=== PATIENT | male | born 1970 | race Caucasian/White ===

== ENCOUNTER 2020-08-26 12:07 | Outpatient (REF) | payer MEDICAID, SELFPAY ==
[2020-08-26 12:37] LABS: MANUAL DIFF FLAG NO
[2020-08-26 12:41] LABS: Basophils Absolute Auto 0.1 X10*3/uL (0.0-0.2); Basophils Percent Auto 0.6 % (0-2); Eosinophils Absolute Auto 0.3 X10*3/uL (0.0-0.4); Hematocrit 48.2 % (42-52); Hemoglobin 15.9 g/dl (14.0-18.0); Imm Gran Abs Auto 0.17 X10*3/uL (0.00-0.03); Imm Gran Pct Auto 1.4 % (0.0-0.4); Lymphocytes Absolute Auto 4.5 X10*3/uL (1.2-4.9); Lymphocytes Percent Auto 36.1 % (20-40); Mean Corpuscular Hemoglobin 30.8 pg (27.0-33.0); Mean Corpuscular Volume 93.2 fL (80-98); Mean Platelet Volume 9.3 fL (9.4-12.4); Monocytes Absolute Auto 0.9 X10*3/uL (0.1-1.2); Monocytes Percent Auto 6.9 % (2-11); Neutrophils Absolute Auto 6.6 X10*3/uL (2.0-8.3); Platelet Count 281 X10*3/uL (160-400); Red Blood Count 5.17 X10*6/uL (4.60-5.80); Red Cell Distribution Width 13.4 % (11.0-16.0); White Blood Count 12.4 X10*3/uL (4.8-10.8)
[2020-08-26 13:12] LABS: Alanine Aminotransferase 57 U/L (0-40); Albumin Level 4.9 g/dL (3.5-5.0); Alkaline Phosphatase 109 U/L (39-117); Anion Gap 13 (12-20); Aspartate Amino Transferase 41 U/L (5-37); Bilirubin Total 0.8 mg/dL (0.0-1.0); Blood Urea Nitrogen 17 mg/dL (9-16); Calcium 10.2 mg/dL (8.4-10.2); Carbon Dioxide 29 mmol/L (22-29); Chloride 101 mmol/L (96-108); Cholesterol 122 mg/dL; Estimated Glomerular Filt Rate > 60; Glucose Random 210 mg/dL (60-115); HDL Cholesterol 34 mg/dL; LDL Cholesterol Calculated 73 mg/dl; Potassium 4.3 mmol/L (3.3-5.1); Sodium 139 mmol/L (135-145); Total Protein 7.7 g/dL (6.5-8.0); Triglycerides 76 mg/dL
[2020-08-26 13:32] LABS: Prostate Specific Antigen 1.28 ng/mL (<0.05-4.0); Vitamin D 25-OH Total 47.7 ng/mL (>30)
[2020-08-26 13:35] LABS: Creatinine Urine 302.42 mg/dL; Microalbum/Creatinine Ratio Ur 12.2 ug/mg cr
[2020-08-26 14:03] LABS: T4 Thyroxine 7.5 ug/dL (4.5-12.0)
[2020-08-26 14:56] LABS: Vitamin B12 480 pg/mL (200-900)
[2020-08-27 09:06] LABS: Triiodothyronine T3 Free 2.4 pg/mL (2.3-4.2)
[2020-08-28 20:47] LABS: TS Negative Control Passed; TS Panel A 0; TS Panel B 0; TS Positive Control Passed; TSpotTB Negative (SeeBelow)
== END 2020-08-26 12:08 | disposition home or self-care (01) ==
LOC: HO.LAB 12:07
PROVIDERS: PCP Pediatrics; Visit Provider Pediatrics
DX: Z11.4 Encounter for screening for human immunodeficiency virus [HIV] (principal); E03.9 Hypothyroidism, unspecified; E11.9 Type 2 diabetes mellitus without complications; E78.00 Pure hypercholesterolemia, unspecified; J44.9 Chronic obstructive pulmonary disease, unspecified
CPT/HCPCS: 36415; 80053; 80061; 82043; 82306; 82550; 82607; 84153; 84436; 84443; 84481; 85025; 86481

== ENCOUNTER 2021-05-04 13:56 | Outpatient (REF) | payer MEDICAID, SELFPAY ==
[2021-05-04 14:22] LABS: MANUAL DIFF FLAG NO
[2021-05-04 14:59] LABS: Basophils Absolute Auto 0.1 X10*3/uL (0.0-0.2); Basophils Percent Auto 0.6 % (0-2); Eosinophils Absolute Auto 0.2 X10*3/uL (0.0-0.4); Eosinophils Percent Auto 2.4 % (0-4); Hematocrit 48.5 % (42.0-52.0); Hemoglobin 15.8 g/dl (14.0-18.0); Imm Gran Abs Auto 0.07 X10*3/uL (0.00-0.03); Imm Gran Pct Auto 0.7 % (0.0-0.4); Lymphocytes Absolute Auto 3.7 X10*3/uL (1.2-4.9); Lymphocytes Percent Auto 37.2 % (20-40); Mean Corpuscular HGB Conc 32.6 g/dl (31.0-36.0); Mean Corpuscular Hemoglobin 30.2 pg (27.0-33.0); Mean Corpuscular Volume 92.7 fL (80.0-98.0); Monocytes Percent Auto 9.9 % (2-11); Neutrophils Percent Auto 49.2 % (45-73); Platelet Count 282 X10*3/uL (160-400); Red Blood Count 5.23 X10*6/uL (4.60-5.80); Red Cell Distribution Width 13.7 % (11.0-16.0); White Blood Count 10.1 X10*3/uL (4.8-10.8)
[2021-05-04 15:24] LABS: Alanine Aminotransferase 38 U/L (0-40); Albumin Level 4.7 g/dL (3.5-5.0); Alkaline Phosphatase 94 U/L (39-117); Anion Gap 12 (12-20); Aspartate Amino Transferase 22 U/L (5-37); Bilirubin Total 0.4 mg/dL (0.0-1.0); Blood Urea Nitrogen 8 mg/dL (9-16); Carbon Dioxide 31 mmol/L (22-29); Chloride 102 mmol/L (96-108); Cholesterol 148 mg/dL; Estimated Glomerular Filt Rate > 60; Glucose Random 68 mg/dL (60-115); HDL Cholesterol 35 mg/dL; LDL Cholesterol Calculated 90 mg/dl; Magnesium 2.1 mg/dL (1.6-2.6); Potassium 4.5 mmol/L (3.3-5.1); Sodium 140 mmol/L (135-145); Total Protein 7.4 g/dL (6.5-8.0); Triglycerides 119 mg/dL
[2021-05-04 15:26] LABS: Estimated Average Glucose 117 mg/dL; Hemoglobin A1c % 5.7 %
[2021-05-04 15:40] LABS: Creatinine Urine 255.16 mg/dL
[2021-05-04 15:58] LABS: Thyroid Stimulating Hormone 0.09 uIU/mL (0.32-4.0); Vitamin D 25-OH Total 63.4 ng/mL (>30)
[2021-05-04 16:17] LABS: T4 Thyroxine 11.9 ug/dL (4.5-12.0)
[2021-05-04 16:55] LABS: Vitamin B12 522 pg/mL (200-900)
[2021-05-06 06:36] LABS: Triiodothyronine T3 Total 112 ng/dL (76-181)
== END 2021-05-04 13:57 | disposition home or self-care (01) ==
LOC: HO.LAB 13:56
PROVIDERS: PCP Pediatrics; Visit Provider Pediatrics
DX: E03.9 Hypothyroidism, unspecified (principal); E11.9 Type 2 diabetes mellitus without complications; E78.00 Pure hypercholesterolemia, unspecified; I10 Essential (primary) hypertension
CPT/HCPCS: 36415; 80053; 80061; 82043; 82306; 82550; 82607; 83036; 83735; 84436; 84443; 84480; 85025

== ENCOUNTER 2023-03-09 16:06 | Outpatient (REF) | payer MEDICAID, SELFPAY ==
[2023-03-09 17:34] LABS: MANUAL DIFF FLAG NO
[2023-03-09 17:38] LABS: Basophils Absolute Auto 0.1 X10*3/uL (0.0-0.2); Basophils Percent Auto 0.9 % (0-2); Eosinophils Absolute Auto 0.7 X10*3/uL (0.0-0.4); Eosinophils Percent Auto 4.6 % (0-4); Hemoglobin 16.6 g/dl (14.0-18.0); Imm Gran Abs Auto 0.21 X10*3/uL (0.00-0.03); Imm Gran Pct Auto 1.4 % (0.0-0.4); Lymphocytes Absolute Auto 4.7 X10*3/uL (1.2-4.9); Lymphocytes Percent Auto 31.2 % (20-40); Mean Corpuscular HGB Conc 33.9 g/dl (31.0-36.0); Mean Corpuscular Hemoglobin 31.1 pg (27.0-33.0); Mean Corpuscular Volume 91.9 fL (80.0-98.0); Monocytes Absolute Auto 0.8 X10*3/uL (0.1-1.2); Monocytes Percent Auto 5.5 % (2-11); Neutrophils Absolute Auto 8.5 x10*3/uL (2.0-8.3); Neutrophils Percent Auto 56.4 % (45-73); Platelet Count 271 X10*3/uL (160-400); Red Blood Count 5.33 X10*6/uL (4.60-5.80); Red Cell Distribution Width 13.6 % (11.0-16.0); White Blood Count 15.1 X10*3/uL (4.8-10.8)
[2023-03-09 18:01] LABS: Anion Gap 12 (12-20); Blood Urea Nitrogen 12 mg/dL (9-16); Calcium 9.3 mg/dL (8.4-10.2); Carbon Dioxide 25 mmol/L (22-29); Chloride 104 mmol/L (96-108); Cholesterol 201 mg/dL (<200); Estimated Glomerular Filt Rate > 60; Glucose Fasting 98 mg/dL (60-99); HDL Cholesterol 42 mg/dL (>40); LDL Cholesterol Calculated 142 mg/dL (<100); Potassium 3.9 mmol/L (3.3-5.1); Sodium 137 mmol/L (135-145); Triglycerides 89 mg/dL (<150)
[2023-03-09 20:32] LABS: Free T4 (Free Thyroxine) 1.19 ng/dL (0.71-1.85)
[2023-03-12 18:44] LABS: TS Negative Control Passed; TS Panel A 0; TS Panel B 0; TS Positive Control Passed; TSpotTB Negative (Negative)
== END 2023-03-09 16:07 | disposition home or self-care (01) ==
LOC: HO.CHCLDS 16:06
PROVIDERS: Visit Provider Pediatrics
DX: Z12.5 Encounter for screening for malignant neoplasm of prostate (principal); Z11.1 Encounter for screening for respiratory tuberculosis; E11.9 Type 2 diabetes mellitus without complications; I10 Essential (primary) hypertension; E03.9 Hypothyroidism, unspecified; F17.200 Nicotine dependence, unspecified, uncomplicated
CPT/HCPCS: 36415; 80048; 80061; 84153; 84439; 84443; 85025; 86481

== ENCOUNTER 2023-08-08 11:43 | Outpatient (REF) | payer MEDICAID, SELFPAY ==
[2023-08-08 15:12] LABS: TSH reflex Free T4 7.26 uIU/mL (0.32-4.0)
[2023-08-08 17:08] LABS: Free T4 (Free Thyroxine) 0.98 ng/dL (0.71-1.85)
[2023-08-09 08:53] LABS: Lyme Abs Screen <0.90 index
== END 2023-08-08 11:44 | disposition home or self-care (01) ==
LOC: HO.CHCLDS 11:43
PROVIDERS: Visit Provider Pediatrics
DX: S30.860A Insect bite (nonvenomous) of lower back and pelvis, initial encounter (principal); W57.XXXA Bitten or stung by nonvenomous insect and other nonvenomous arthropods, initial encounter; E03.9 Hypothyroidism, unspecified; E11.9 Type 2 diabetes mellitus without complications; Y93.9 Activity, unspecified; Y92.9 Unspecified place or not applicable; Y99.9 Unspecified external cause status
CPT/HCPCS: 36415; 84439; 84443; 86617; 86618

== ENCOUNTER 2024-05-15 12:53 | Outpatient (REF) | payer MEDICAID, SELFPAY ==
[2024-05-15 14:55] LABS: MANUAL DIFF FLAG NO
--- OUTSIDE RECORDS SUMMARY | 2024-05-15 14:55 | XMS_ITS | Encounter Summary ---
Author Organization [employer] Address [address] [facility] 7t [place] [address] Care Team Providers Care Monkey Keeper Name Role Phone Mariann Landaverde MD Primary Care Provider [phone] Reason for Visit * Reason Onset Date Comments Additional Information 03/14/2023 Encounter Details Date Type Department Care Team ([facility] st Contact Info) Description 03/14/2023 Telephone [facility] MEDICINE [address] [place], [place] [phone] Mariann Landaverde MD [address] [place], [place] [phone] Additional Information Social History Tobacco Use Types Packs/Day Years Used Date Smoking Tobacco: Every Day Cigarettes Passive Smoke Exposure: Current Smokeless Tobacco: Never Depression Answer Date Recorded Patient Health Questionnaire-9 Score 0 06/07/2022 Housing Stability Answer Date Recorded What is your housing situation today? I have ricarda cota 12/07/[address] you li ve. Do you have problems with any of the following? I am not sure 12/07/2022 Food Insecurity Answer Date Recorded Within the past 12 months, y ou worried that your food would run out before you got money to buy more: Never True 12/07/2022 Within the past 12 months,th e food you bought just didn't last and you didn't have enough money to get more: Often true 02/2022 Transportation Answer Date Recorded In the past 12 months, has l ack of transportation kept you from medical appts, meetings, work or from getting things needed for daily living? No 12/07/2022 Utilities Answer Date Recorded In the past 12 months, has t he electric, gas, oil or water company threatened to shut off services in your home? I am not sure 12/07/2022 Depression Answer Date Recorded Patient Health Questionnaire-2 Score 0 06/07/2022 Sex and Gender Information Value Date Recorded Sex Assigned at Male 12/06/2021 10:19 AM EDT Legal Sex Male 10:19 AM EDT Gender Identity Male 12/06/2021 10:19 AM EDT Sexual Orientation Straight 08/11/2023 12 :09 PM EDT documented as of this encounter Miscellaneous Notes * Telephone Encounter - Marshall Encarnacion - 03/14/2023 9:50 AM EST Tc from [facility] at [facility] Radiology calling to inform the PCP that the part for how many packs per year the patient smokes cigarettes needs to be filled out due to insurance documented in this encounter Plan of Treatment Upcoming Encounters Date Type Department Care Team (Late st Contact Info) Description 07/24/2024 11:30 AM EDT Office Visit [facility] CHC MED & PEDS [address] [place] [address] Mariann Landaverde MD [address] [place] [address] documented as of this encounter Visit Diagnoses Not on filedocumented in this encounter Additional Health Concerns Assessment Noted Time PHQ-9 Depression Total Score: 0 06/08/19 23 12:00 PM EDT documented as of this encounter Care Teams Monkey Keeper Relationship Specialty Start Date End Date Mariann Landaverde MD [address] [place] [address] PCP - General Family Medicine 02/06/18 documented as of this encounter
--- OUTSIDE RECORDS SUMMARY | 2024-05-15 14:55 | XMS_ITS | Encounter Summary ---
Author Organization [employer] Address [address] [facility] 7t [place] [address] Care Team Providers Care Negotiator Sales Name Role Phone Mariann Landaverde MD Primary Care Provider [phone] Encounter Details Date Type Department Care Team (Late st Contact Info) Description 03/14/2023 Orders Only [facility] CHC MED & PEDS [address] [place], [place] [phone] Mariann Landaverde MD [address] [place], [place] [phone] Social History Tobacco Use Types Packs/Day Years [...] PM EDT documented as of this encounter Plan of Treatment Upcoming Encounters Date Type Department Care Team (Late st Contact Info) Description 07/24/2024 11:30 AM EDT Office Visit [facility] MED & PEDS [address] [place], [place] [phone] Mariann Landaverde MD [address] [place], [place] [phone] documented as of this encounter Procedures Procedure Name Priority Date/Time Associated Diagnosis Comments T4, FREE Routine 08/08/2023 11:45 AM EDT documented in this encounter Results * T4, Free (08/08/2023 11:45 AM EDT) Free T4 (Free Thyroxine) 0.98 0.71 - 1.85 ng/dL [facility] 08/08/2023 11:4 5 AM EDT 08/08/2023 2:20 PM EDT us Mariann Landaverde MD LAB BLOOD ORDERABLES Final Re sult [facility] [address] [place] [address] [phone] documented in this encounter Visit Diagnoses Not on filedocumented in this encounter Additional Health Concerns Assessment Noted Time PHQ-9 Depression Total Score: 0 06/08/19 23 12:00 PM EDT documented as of this encounter Care Teams Negotiator Sales Relationship Specialty Start Date End Date Mariann Landaverde MD [address] [place] [address] PCP - General Family Medicine 02/06/18 documented as of this encounter
--- OUTSIDE RECORDS SUMMARY | 2024-05-15 14:55 | XMS_ITS | Encounter Summary ---
Author Organization [employer] Address [address] [facility] 7t [place] [address] Care Team Providers Care Cloud Solutions Architect Name Role Phone Mariann Landaverde MD Primary Care Provider [phone] Reason for Referral * Imaging (Routine) - Closed Specialty Diagnoses / Procedures Referred By Contmaty t Referred To Contact Diagnoses Smoker Procedures CT Chest w/ Contrast Kourtney Cherry MD [address] [place] [address] Phone: tel: fax: [address] Phone: tel: fax: Referral ID Status Reason Start Date Expiration Date Visits Re quested Visits Authorized [id number] Closed 06/24/2022 06/24/2023 1 1 Encounter Details Date Type Department Care Team ([facility] st Contact Info) Description 06/24/2022 Orders Only [facility] MEDICINE [address] [place], [place] [phone] Kourtney Cherry MD [address] [place], [place] [phone] Smoker (Primary Dx) Social History Tobacco Use Types Packs/Day Years Used Date Smoking Tobacco: Every Day Cigarettes Passive Smoke Exposure: Current Smokeless Tobacco: Never Depression Answer Date Recorded Patient Health Questionnaire-9 Score 0 06/07/2022 Depression Answer Date Recorded Patient Health Questionnaire-2 Score 0 06/07/2022 Sex and Gender Information Value Date Recorded Sex Assigned at Male 12/06/2021 10:19 AM EDT Legal Sex Male 10:19 AM EDT Gender Identity Male 12/06/2021 10:19 AM EDT Sexual Orientation Straight 08/11/2023 12 :09 PM EDT COVID-19 Exposure Response Date Recorded In the last 10 days, have yo u been in contact with someone who was confirmed or suspected to have Coronavirus/COVID-19? No / Unsure 06/07/2022 11:27 AM EDT documented as of this encounter Plan of Treatment Upcoming Encounters Date Type Department Care Team (Late st Contact Info) Description 07/24/2024 11:30 AM EDT Office Visit [facility] MED & PEDS [address] [place] [address] Mariann Landaverde MD [address] [place] [address] Scheduled Orders Name Type Priority Associated Diagnoses Orde r Schedule CT Chest w/ Contrast Imaging Routine Smoker Expected: 06/24/2022, Expires: 06/25/2023 documented as of this encounter Procedures Procedure Name Priority Date/Time Associated Diagnosis Comments T4, FREE Routine 03/09/2023 4:07 PM EST Smoker documented in this encounter Results * T4, Free (03/09/2023 4:07 PM EST) Free T4 (Free Thyroxine) 1.19 0.71 - 1.85 ng/dL [facility] 03/09/2023 4:07 PM EST 03/09/2023 5:31 PM EST us Mariann Landaverde MD LAB BLOOD ORDERABLES Final Re sult [facility] [address] [place] [address] [phone] documented in this encounter Visit Diagnoses Diagnosis Smoker- Primary Tobacco use disorder documented in this encounter Additional Health Concerns Assessment Noted Time PHQ-9 Depression Total Score: 0 06/08/19 23 12:00 PM EDT documented as of this encounter Care Teams Cloud Solutions Architect Relationship Specialty Start Date End Date Mariann Landaverde MD [address] [place] [phone] PCP - General Family Medicine 02/06/18 documented as of this encounter
--- OUTSIDE RECORDS SUMMARY | 2024-05-15 14:56 | XMS_ITS | Clinical Summary ---
Author Organization [employer] Address [address] [facility] 7t [place] [address] Care Team Providers Care Communications Program Manager Name Role Phone Mariann Landaverde MD Primary Care Provider [phone] Allergies Active Allergy Reactions Criticality Noted Date Comments Oxycodone 04/21/2014 Other reaction(s): Nausea/Vomiting Medications albuterol (ProAir HFA) 108 (90 Base) MCG/ACT inhaler inhale 2 puff by inhalation route every 4 - 6 hours as needed as needed for wheezing 019 Active atorvastatin (Lipitor) 40 MG tablet take 1 tablet by oral route every bedtime 022 Active dulaglutide (Trulicity) 0.75 MG/0.5ML solution pen-injector inject (0.75MG) by subcutaneous route every week 022 Active fluticasone (Flovent HFA) 220 MCG/ACT inhaler inhale 1 puff (220MCG) by inhalation route 2 times every day 021 Active glucose blood (FREESTYLE LITE) test strip check bs by skin route 2 times every day 019 Active ibuprofen 600 MG tablet take 1 tablet by oral route 3 times every day with food 018 Active sildenafil (Viagra) 100 MG tablet take 1 tablet by oral route every day as needed approximately 1 hour before sexual activity as needed 021 Active testosterone (Testim) 50 MG/5GM (1%) gel apply (50MG) by topical route every day (1 tube = 50 mg) 022 Active Varenicline Tartrate, Starter, (Chantix Starting Month ) 0.5 MG X 11 & 1 MG X 42 tablet therapy pack Take 0.5 mg by mouth 2 times daily. 53 each 023 Active nicotine (Nicoderm, Step 1) 21 MG/24HR patch apply 1 patch by transdermal route every day and remove at bedtime 30 patch 1 024 Active hydroCHLOROthia zide (HYDRODiuril) 25 MG tabletIndicatio ns:Benign essential hypertension TAKE ONE TABLET DAILY 30 tablet 11 024 Active Viagra 100 MG tabletIndicatio ns:Erectile dysfunction due to diseases classified elsewhere TAKE 1 TABLET 1 HOUR BEFORE SEXUAL RELATIONS ONCE DAILY NEEDED. 4 tablet 3 024 Active levothyroxine (Synthroid) 125 MCG tablet Take 1 tablet (125 mcg) by mouth before breakfast. 30 tablet 11 024 2024 Active enalapril (Vasotec) 20 MG tablet TAKE ONE TABLET EVERY DAY 90 tablet 3 024 Active Trulicity 0.75 MG/0.5ML solution auto-injectorIn dications:Type 2 diabetes mellitus without complication, without long-term current use of insulin ([facility]) INJECT ONE PEN (=0.75MG) SUBCUTANEOUSLY ONCE A WEEK DIRECTED 2 mL 11 025 Active dulaglutide (Trulicity) 0.75 MG/0.5ML solution pen-injectorInd ications:Type 2 diabetes mellitus without complication, without long-term current use of insulin (CMS/HCC) INJECT ONE PEN (=0.75MG) SUBCUTANEOUSLY ONCE A WEEK DIRECTED 2 mL 11 024 2024 Discontinued Active Problems Problem Noted Date Diagnosed Date Cigarette smoker 08/08/2023 Diabetes mellitus without complication 7 Benign essential hypertension 01/28/2015 Acquired hypothyroidism 06/14/2011 Hypercholesterolemia 06/14/2011 Tobacco dependence in remission 06/14/2011 03/13/2023 Hypertension 06/14/2011 03/13/2023 Obesity 06/14/2011 03/13/2023 Encounters Date Type Department Care Team Description 05/04/2024 Refill [facility] MEDICINE [address] [place] [address] Mariann Landaverde MD Type 2 diabetes mellitus without complication, without long-term current use of insulin (CMS/HCC) 04/19/2024 Population Health Risk Score [facility] Department [address] [place] [phone] Provider, Population Health Generic 04/11/2024 11:30 AM EST Office Visit [facility] MED & PEDS [address] [place] [address] Mariann Landaverde MD Benign essential hypertension (Primary Dx); Diabetes mellitus without complication (CMS/HCC); Acquired hypothyroidism; Hypercholesterolemi a; Dietary counseling; Exercise counseling; Cigarette smoker 04/11/2024 Travel 03/06/2024 Telephone [facility] CHC MED & PEDS [address] [place] [address] Mariann Landaverde MD chronic conditions tracking from Last 3 Months Immunizations Name Administration Dates Next Due Tdap 09/09/2009 Family History Medical History Relation Name Comments Blindness Mother's Brother Diabetes Mother's Brother Relation Name Status Comments Mother's Brother Social History Tobacco Use Types Packs/Day Years Used Date Smoking Tobacco: Every Day Cigarettes Passive Smoke Exposure: Current Smokeless Tobacco: Never Tobacco Cessation:Ready to Q uit: Not Asked; Counseling Given: Not Answered Depression Answer Date Recorded Patient Health Questionnaire-9 Score 0 06/07/2022 Housing Stability Answer Date Recorded What is your housing situation today? I have ricarda cota 08/08/[address] you li ve. Do you have problems with any of the following? None of the above 08/08/2023 Food Insecurity Answer Date Recorded Within the past 12 months, y ou worried that your food would run out before you got money to buy more: Never True 08/08/2023 Within the past 12 months,th e food you bought just didn't last and you didn't have enough money to get more: Never True 03/2023 Transportation Answer Date Recorded In the past 12 months, has l ack of transportation kept you from medical appts, meetings, work or from getting things needed for daily living? No 08/08/2023 Utilities Answer Date Recorded In the past 12 months, has t he electric, gas, oil or water company threatened to shut off services in your home? No 08/08/2023 Depression Answer Date Recorded Patient Health Questionnaire-2 Score 0 06/07/2022 Internet Access Answer Date Recorded Internet Access Q1 Yes 10/09/2023 Internet Access Q2 Not on file 10/09/2023 Sex and Gender Information Value Date Recorded Sex Assigned at Male 12/06/2021 10:19 AM EDT Legal Sex Male 10:19 AM EDT Gender Identity Male 12/06/2021 10:19 AM EDT Sexual Orientation Straight 08/11/2023 12 :09 PM EDT Last Filed Vital Signs Vital Sign Reading Time Taken Comments Blood Pressure 123/83 04/11/2024 11:48 AM EST Pulse 90 04/11/2024 11:48 AM EST Temperature 36.6 ??C (97.8 ??F) 04/11/2024 11:[address] Respiratory Rate 20 04/11/2024 11:48 AM EST Oxygen Saturation 98% 04/11/2024 11:48 AM EST Inhaled Oxygen Concentration - - Weight 88.9 kg (196 lb) 04/11/2024 11:48 AM EST Height 174 cm (5' 8.5 ) 04/11/2024 11:48 AM EST Body Mass Index 29.37 04/11/2024 11:48 AM EST Plan of Treatment Upcoming Encounters Date Type Department Care Team (Late st Contact Info) Description 07/24/2024 11:30 AM EDT Office Visit [facility] CHC MED & PEDS [address] [place] [address] Mariann Landaverde MD [address] [place] [address] Health Maintenance Due Date Last Done Comments CT Colonography 1968 Colonoscopy 1968 Colorectal Cancer Screening 1968 FIT DNA/Cologuard 1968 FIT 1968 FOBT 1968 HIV Screening 1968 Sigmoidoscopy 1968 Diabetes: Foot Exam 01/19/1978 Hepatitis C Screening 01/19/1986 Hepatitis B Vaccines (1 of 3 - 19+ 3-dose series) 01/19/1987 Pneumococcal Vaccine: 50+ Years (1 of 2 - PCV) 01/19/1987 Zoster Vaccines (1 of 2) 01/19/2018 DTaP/Tdap/Td Vaccines (2 - Td or Tdap) 09/10/2019 09/09/2009 Diabetes: Urine Protein Screening 05/04/2022 05/04/2021, 08/26/2020, 12/05/2019 Depression Screening 06/08/2023 06/07/2022, 06/08/19 23 COVID-19 Vaccine ( season) 2023 04/18/2020, 03/26/2020 Influenza Vaccine (#1) 2023 Lipid Panel 03/09/2024 03/09/2023, 02/07, 10/27/2021, Additional history exists Alcohol/Substance Use Screening 08/07/2024 08/08/2023 SDOH Screening 08/07/2024 08/08/2023 Eye Exam 09/06/2024 09/06/2022, 0802/2022, 09/06/2022, Additional history exists Diabetes: Hemoglobin A1C 10/12/2024 025, 08/08/2023, 03/09/2023, Additional history exists Tobacco Screening 04/11/2025 04/11/2024, 06/07/2022 RSV Patients and Patients Aged 60 years or older (1 - 1-dose 75+ series) 01/19/2043 HIB Vaccines Aged Out No longer eligi ble based on patient's age to complete this topic HPV Vaccines Aged Out No longer eligi ble based on patient's age to complete this topic Hepatitis A Vaccines Aged Out No long er eligible based on patient's age to complete this topic IPV Vaccines Aged Out No longer eligi ble based on patient's age to complete this topic Meningococcal Vaccine Aged Out No taz karen eligible based on patient's age to complete this topic RSV under 20 months Aged Out No longe r eligible based on patient's age to complete this topic Rotavirus Vaccines Aged Out No longer eligible based on patient's age to complete this topic Procedures Procedure Name Priority Date/Time Associated Diagnosis Comments POCT GLYCATED HEMOGLOBIN, TOTAL Routine 04/11/2024 11:53 AM EST Diabetes mellitus without complication (CMS/HCC) POCT GLUCOSE Routine 04/11/2024 11:52 AM EST Diabetes mellitus without complication (CMS/HCC) LIPID PANEL, STANDARD Routine 03/09/2023 4:07 PM EST Diabetes mellitus without complication (CMS/HCC) Benign essential hypertension Acquired hypothyroidism Smoker [employer] HISTORICAL MICROALBUMIN/CREATI NINE RATIO, RANDOM URINE Routine 05/04/2021 2:17 PM EDT from Last 3 Months or Most Recently Relevant to Health Maintenance Results * POCT HGB A1C (04/11/2024 11:53 AM EST) Hemoglobin A1C 6.0 4.0 - 6.0 % QC Media Lot # [id number] Lot# Expiration Date 1,026 Blood 04/11/2024 11:5 3 AM EST Mariann Landaverde MD POINT OF CARE TEST ENTER/EDIT ORDERABLES Final Result * POCT Glucose (04/11/2024 11:52 AM EST) Pathologist [facility] Glucose Blood, POC 153 60 - 200 mg/dL QC Media Lot # [id number] Lot# Expiration Date Blood Capillary blood specimen / Unknown 04/11/2024 11:52 AM EST Mariann Landaverde MD POINT OF CARE TEST ENTER/EDIT ORDERABLES Final Result * (ABNORMAL) Lipid Panel, Standard (03/09/2023 4:07 PM EST) Triglycerides 89 <150 mg/dL [facility] Comment:Desirable Triglyceri de: less than 150 mg/dLBorderline High Triglyceride 150-199 mg/dLHigh Triglyceride: 200-499 mg/dLVery High Triglyceride: greater than or equal to 5OO mg/dL Cholesterol 201(H) <200 mg/dL [facility] Comment:Desirable Cholestero l: less than 200 mg/dLBorderline High Cholesterol: 200-239 mg/dLHigh Cholesterol: greater than 239 mg/dL LDL Cholesterol Calculated 142(H) <100 mg/dL [facility] Comment:Desirable LDL: less than 100 mg/dLNear Optimal/Above Optimal LDL: 110- 129 mg/dLBorderline High LDL: 130-159 mg/dLHigh LDL: 160-189 mg/dLVery High LDL: greater than or equal to 190 mg/dL HDL Cholesterol 42 >40 mg/dL [facility] Comment:Desirable HDL: great er than 40 mg/dL Note: This HDL assay may give artificially low results in patients with liver disease. Blood Venous blood specimen / Unknown 03/09/2023 4:07 PM EST 03/09/2023 5:31 PM EST us Mariann Landaverde MD LAB BLOOD ORDERABLES Final Re sult Performing Organization Address [facility] Co de Phone Number [facility] [address] [place] [address] [phone] * MICROALBUMIN/CREATININE RATIO, RANDOM URINE (05/04/2021 2:17 PM EDT) Creatinine Urine 255.16 mg/dL [facility] Microalbum/Creati nine Ratio Ur 7.0 ug/mg cr [facility] Comment: ?Albumin/Creatinine Ratio Reference Ranges: ? Normal: < 30 ug/mg creatinine ? Microalbuminuria: ??30 - 300 ug/mg creatinine Clinical Albuminuria: ??> 300 ug/mg creatinine Microalbumin Urine 18.0 mg/L [facility] 05/04/2021 2:17 PM EDT us Mariann Landaverde MD HISTORICAL/NON ORDERABLE LABS Final Result [facility] [address] from Last 3 Months or Most Recently Relevant to Health Maintenance Insurance [place] [employer] Care Teams Communications Program Manager Relationship Specialty Start Date End Date Mariann Landaverde MD [address] [place] [phone] PCP - General Family Medicine 02/06/18
[2024-05-15 14:57] LABS: Hematocrit 49.3 % (42.0-52.0); Hemoglobin 16.4 g/dl (14.0-18.0); Mean Corpuscular HGB Conc 33.3 g/dl (31.0-36.0); Mean Corpuscular Hemoglobin 30.7 pg (27.0-33.0); Mean Corpuscular Volume 92.1 fL (80.0-98.0); Mean Platelet Volume 9.5 fL (9.4-12.4); Neutrophils Percent Auto 49.4 % (45-73); Platelet Count 277 X10*3/uL (160-400); Red Blood Count 5.35 X10*6/uL (4.60-5.80); Red Cell Distribution Width 13.4 % (11.0-16.0); White Blood Count 10.8 X10*3/uL (4.8-10.8)
[2024-05-15 14:58] LABS: Basophils Absolute Auto 0.1 X10*3/uL (0.0-0.2); Basophils Percent Auto 0.8 % (0-2); Eosinophils Absolute Auto 0.3 X10*3/uL (0.0-0.4); Imm Gran Abs Auto 0.12 X10*3/uL (0.00-0.03); Imm Gran Pct Auto 1.1 % (0.0-0.4); Lymphocytes Absolute Auto 4.1 X10*3/uL (1.2-4.9); Lymphocytes Percent Auto 37.4 % (20-40); Monocytes Absolute Auto 0.9 X10*3/uL (0.1-1.2); Monocytes Percent Auto 8.3 % (2-11); Neutrophils Absolute Auto 5.3 x10*3/uL (2.0-8.3)
[2024-05-15 15:21] LABS: Alanine Aminotransferase 28 U/L (0-40); Albumin Level 4.6 g/dL (3.5-5.0); Alkaline Phosphatase 82 U/L (39-117); Aspartate Amino Transferase 27 U/L (5-37); Bilirubin Direct 0.1 mg/dL (0.0-0.5); Bilirubin Total 0.3 mg/dL (0.0-1.0); Cholesterol 198 mg/dL (<200); HDL Cholesterol 40 mg/dL (>40); LDL Cholesterol Calculated 140 mg/dL (<100); Total Protein 7.3 g/dL (6.5-8.0); Triglycerides 93 mg/dL (<150)
[2024-05-15 15:36] LABS: TSH reflex Free T4 3.35 uIU/mL (0.32-4.0)
[2024-05-15 15:43] LABS: Vitamin B12 456 pg/mL (200-900)
[2024-05-15 15:45] LABS: Creatinine Urine 223.91 mg/dL; Microalbum/Creatinine Ratio Ur 11.1 ug/mg cr (<30)
== END 2024-05-15 12:54 | disposition home or self-care (01) ==
LOC: HO.CHCLDS 12:53
PROVIDERS: Visit Provider Pediatrics
DX: I10 Essential (primary) hypertension (principal); E11.9 Type 2 diabetes mellitus without complications; E03.9 Hypothyroidism, unspecified; E78.00 Pure hypercholesterolemia, unspecified
CPT/HCPCS: 36415; 80061; 80076; 82043; 82570; 82607; 82746; 84443; 85025

== ENCOUNTER 2024-06-18 22:50 | Emergency (ER) | payer MEDICAID, SELFPAY ==
[2024-06-18 22:55] VITALS: BP 00/00; PULSE 96; RESP 20; TEMP 36.6; O2SAT 95; BMI 26.5
--- OUTSIDE RECORDS SUMMARY | 2024-06-18 23:58 | XMS_ITS | Encounter Summary ---
Author Organization [employer] Address [address] [facility] 7t [place] [address] Care Team Providers Care Machine Fastener Name Role Phone Mariann Landaverde MD Primary Care Provider [phone] Encounter Details Date Type Department Care Team (Late st Contact Info) Description 03/14/2023 Orders Only [facility] MED & PEDS [address] [place], [place] [phone] Mariann Landaverde MD [address] [place], [place] [phone] Social History Tobacco Use Types Packs/Day Years [...] Description 07/24/2024 11:30 AM EDT Office Visit [facility] MED & PEDS [address] [place], [place] [phone] Mariann Landaverde MD [address] [place], [place] [phone] documented as of this encounter Procedures Procedure Name Priority Date/Time Associated Diagnosis Comments T4, FREE Routine 08/08/2023 11:45 AM EDT documented in this encounter Results * T4, Free (08/08/2023 11:45 AM EDT) Free T4 (Free Thyroxine) 0.98 0.71 - 1.85 ng/dL [facility] 08/08/2023 11:4 5 AM EDT 08/08/2023 2:20 PM EDT us Mariann Landaverde MD LAB BLOOD ORDERABLES Final Re sult [facility] [address] [place] [address] [phone] documented in this encounter Visit Diagnoses Not on filedocumented in this encounter Additional Health Concerns Assessment Noted Time PHQ-9 Depression Total Score: 0 06/08/19 23 12:00 PM EDT documented as of this encounter Care Teams Machine Fastener Relationship Specialty Start Date End Date Mariann Landaverde MD [address] [place] [address] PCP - General Family Medicine 02/06/18 documented as of this encounter
--- OUTSIDE RECORDS SUMMARY | 2024-06-18 23:58 | XMS_ITS | Clinical Summary ---
Author Organization [employer] Address 75 [facility] 7t [place] [address] Care Team Providers Care Reconstructive Dentist Name Role Phone Mariann Landaverde MD Primary Care Provider [phone] Allergies Active Allergy Reactions Criticality Noted Date [...] at bedtime 30 patch 1 024 Active Viagra 100 MG tabletIndicatio ns:Erectile dysfunction due to diseases classified elsewhere TAKE 1 TABLET 1 HOUR BEFORE SEXUAL RELATIONS ONCE DAILY NEEDED. 4 tablet 3 024 Active levothyroxine (Synthroid) 125 MCG tablet Take 1 tablet (125 mcg) by mouth before breakfast. 30 tablet 11 024 2024 Active enalapril (Vasotec) 20 MG tablet TAKE ONE TABLET EVERY DAY 90 tablet 3 Active Trulicity 0.75 MG/0.5ML solution auto-injectorIn dications:Type 2 diabetes mellitus without complication, without long-term current use of insulin ([facility]) INJECT ONE PEN (=0.75MG) SUBCUTANEOUSLY ONCE A WEEK DIRECTED 2 mL 11 025 Active hydroCHLOROthia zide (HYDRODiuril) 25 MG tabletIndicatio ns:Benign essential hypertension TAKE ONE TABLET EVERY DAY 30 tablet 11 025 Active hydroCHLOROthia zide (HYDRODiuril) 25 MG tabletIndicatio ns:Benign essential hypertension TAKE ONE TABLET DAILY 30 tablet 11 024 2024 Discontinued Active Problems Problem Noted Date Diagnosed Date Cigarette smoker 08/08/2023 Diabetes mellitus without complication 7 Benign essential hypertension 01/28/2015 Acquired hypothyroidism 06/14/2011 Hypercholesterolemia 06/14/2011 Tobacco dependence in remission 06/14/2011 03/13/2023 Hypertension 06/14/2011 03/13/2023 Obesity 06/14/2011 03/13/2023 Encounters Date Type Department Care Team Description 05/31/2024 Refill [facility] [address] [place], [place] [phone] Mariann Landaverde MD Benign essential hypertension 05/04/2024 Refill [facility] [address] [place] [address] Mariann Landaverde MD Type 2 diabetes mellitus without complication, without long-term current use of insulin (CMS/[facility]) 04/19/2024 Population Health Risk Score [facility] () Department [address] [place] [address], [place] [phone] Provider, Population Health Generic 04/11/2024 11:30 AM EST Office Visit [facility] [address] [place] [address] Mariann Landaverde MD Benign essential hypertension (Primary Dx); Diabetes mellitus without complication (CMS/HCC); Acquired hypothyroidism; Hypercholesterolemi a; Dietary counseling; Exercise counseling; Cigarette smoker 04/11/2024 Travel from Last 3 Months Immunizations Immunization Administration Dates Next Due Tdap 09/09/2009 Family [...] Office Visit [facility] [address] [place] [address] Mariann Landaverde MD [address] [place] [address] Health Maintenance Due Date Last Done Comments [...] (2 - Td or Tdap) 09/10/2019 09/09/2009 Depression Screening 06/08/2023 06/07/2022, 06/08/19 23 COVID-19 Vaccine (3 - season) 2023 04/18/2020, 03/26/2020 Influenza Vaccine (#1) 2023 Alcohol/Substance Use Screening 08/07/2024 08/08/2023 SDOH Screening 08/07/2024 08/08/2023 Eye Exam 09/06/2024 09/06/2022, 080 02/2022, 09/06/2022, Additional history exists Diabetes: Hemoglobin A1C 10/12/2024 025, 08/08/2023, 03/09/2023, Additional history exists Tobacco Screening 04/11/2025 04/11/2024, 06/07/2022 Diabetes: Urine Protein Screening 05/15/2025 05/15/2024, 05/04/2021, 08/26/2020, Additional history exists Lipid Panel 05/15/2025 05/15/2024, 0202/2023, 03/02/2022, Additional history exists RSV Patients and Patients Aged 60 years [...] Procedure Name Priority Date/Time Associated Diagnosis Comments ALBUMIN, RANDOM URINE W/CREATININE Routine 05/15/2024 12:59 PM EDT Diabetes mellitus without complication (CMS/HCC) Benign essential hypertension Acquired hypothyroidism Hypercholesterolemia VITAMIN B12/FOLATE, SERUM PANEL Routine 05/15/2024 12:56 PM EDT Diabetes mellitus without complication (CMS/HCC) Benign essential hypertension Acquired hypothyroidism Hypercholesterolemia HEPATIC FUNCTION PANEL Routine 05/15/2024 12:56 PM EDT Diabetes mellitus without complication (CMS/HCC) Benign essential hypertension Acquired hypothyroidism Hypercholesterolemia CBC WITH AUTO DIFFERENTIAL Routine 05/15/2024 12:56 PM EDT Diabetes mellitus without complication (CMS/HCC) Benign essential hypertension Acquired hypothyroidism Hypercholesterolemia LIPID PANEL, STANDARD Routine 05/15/2024 12:56 PM EDT Diabetes mellitus without complication (CMS/HCC) Benign essential hypertension Acquired hypothyroidism Hypercholesterolemia TSH W/REFLEX TO FT4 Routine 05/15/2024 1 2:56 PM EDT Diabetes mellitus without complication (CMS/HCC) Benign essential hypertension Acquired hypothyroidism Hypercholesterolemia POCT GLYCATED HEMOGLOBIN, TOTAL Routine 04/11/2024 11:53 AM EST Diabetes mellitus without complication (CMS/HCC) POCT GLUCOSE Routine 04/11/2024 11:52 AM EST Diabetes mellitus without complication (CMS/HCC) from Last 3 Months Results * Albumin, Random Urine W/Creatinine (05/15/2024 12:59 PM EDT) Creatinine, Urine 223.91 mg/dL [facility] Microalbumin Urine 25.0 mg/L [facility] Microalbum Creatinine Ratio Ur 11.1 <30 ug/mg cr [facility] Comment:Albumin/Creatinine R atio Reference Ranges: Normal: < 30 ug/mg creatinine Microalbuminuria: 30 - 300 ug/mg creatinineClinical Albuminuria: > 300 ug/mg creatinine Urine (Urine, Random) 05/15/2024 12:59 PM EDT 05/15/2024 2:54 PM EDT us Mariann Landaverde MD LAB URINE ORDERABLES Final Re sult [facility] [address] [place] [phone] * Vitamin B12/Folate, Serum Panel (05/15/2024 12:56 PM EDT) Pathologist [facility] Vitamin B12 456 200 - 900 pg/mL [facility] Comment:NORMAL 200-900 PG/ML INDETERMINATE 160-199 PG/ML DEFICIENT < 160 PG/ML Folate 11.0 > or = 4.0 ng/mL [facility] Comment:Reference Values:> o r = 4.0 ng/mL< 4.0 ng/mL suggests folate deficiency Methotrexate, aminopterin and folinic acid(leucovorin) are chemotherapeutic agents whose molecularstructures are similar to folate; therefore, the Architectfolate assay cannot be used for patients using these drugs. Blood Venous blood specimen / Unknown 05/15/2024 12:56 PM EDT 05/15/2024 2:51 PM EDT Mariann Landaverde MD LAB BLOOD ORDERABLES Final Re sult Performing Organization Address [facility]/ZIP Co de Phone Number [facility] [address] [place] [phone] * TSH W/Reflex to FT4 (05/15/2024 12:56 PM EDT) [facility] TSH reflex Free T4 3.35 0.32 - 4.0 uIU/mL [facility] Blood Venous blood specimen / Unknown 05/15/2024 12:56 PM EDT 05/15/2024 2:51 PM EDT Mariann Landaverde MD LAB BLOOD ORDERABLES Final Re sult [facility] [address] [place] [phone] * (ABNORMAL) CBC auto differential (05/15/2024 12:56 PM EDT) [facility] White Blood Count 10.8 4.8 - 10.8 X10*3/uL [facility] Red Blood Count 5.35 4.60 - 5.80 X10*6/uL [facility] Hemoglobin 16.4 14.0 - 18.0 g/dl [facility] Hematocrit 49.3 42.0 - 52.0 % [facility] Mean Corpuscular Volume 92.1 80.0 - 98.0 fL [facility] Mean Corpuscular Hemoglobin 30.7 27.0 - 33.0 pg [facility] Mean Corpuscular HGB Conc 33.3 31.0 - 36.0 g/dl [facility] Red Cell Distribution Width 13.4 11.0 - 16.0 % [facility] Platelet Count 277 160 - 400 X10*3/uL [facility] Mean Platelet Volume 9.5 9.4 - 12.4 fL [facility] Neutrophils Percent Auto 49.4 45 - 73 % [facility] Imm Gran Pct Auto 1.1(H) 0.0 - 0.4 % [facility] Lymphocytes Percent Auto 37.4 20 - 40 % [facility] Monocytes Percent Auto 8.3 2 - 11 % [facility] Eosinophils Percent Auto 3.0 0 - 4 % [facility] Basophils Percent Auto 0.8 0 - 2 % [facility] NRBC Pct Auto 0.0 0.0 - 0.2 /100WBC [facility] Neutrophils Absolute Auto 5.3 2.0 - 8.3 x10*3/uL [facility] Imm Gran Abs Auto 0.12(H) 0.00 - 0.03 X10*3/uL [facility] Lymphocytes Absolute Auto 4.1 1.2 - 4.9 X10*3/uL [facility] Monocytes Absolute Auto 0.9 0.1 - 1.2 X10*3/uL [facility] Eosinophils Absolute Auto 0.3 0.0 - 0.4 X10*3/uL [facility] Basophils Absolute Auto 0.1 0.0 - 0.2 X10*3/uL [facility] NRBC Abs Auto 0.000 0.0 - 0.012 X10*3/uL [facility] Blood Venous blood specimen / Unknown 05/15/2024 12:56 PM EDT 05/15/2024 2:51 PM EDT Mariann Landaverde MD LAB BLOOD ORDERABLES Final Re sult Performing Organization Address [facility]/ZIP Co de Phone Number [facility] [address] [place] [phone] * Hepatic Function Panel (05/15/2024 12:56 PM EDT) Bilirubin, Total 0.3 0.0 - 1.0 mg/dL [facility] Bilirubin, Direct 0.1 0.0 - 0.5 mg/dL [facility] Aspartate Amino Transferase 27 5 - 37 U/L [facility] Alanine Aminotransferase 28 0 - 40 U/L [facility] Total Protein 7.3 6.5 - 8.0 g/dL [facility] Albumin Level 4.6 3.5 - 5.0 g/dL [facility] Alkaline Phosphatase 82 39 - 117 U/L [facility] Blood Venous blood specimen / Unknown 05/15/2024 12:56 PM EDT 05/15/2024 2:51 PM EDT Mariann Landaverde MD LAB BLOOD ORDERABLES Final Re sult Performing Organization Address [facility] Co de Phone Number [facility] [address] [place] [phone] * (ABNORMAL) Lipid Panel, Standard (05/15/2024 12:56 PM EDT) Triglycerides 93 <150 mg/dL [facility] Comment:Desirable Triglyceri de: less than 150 mg/dLBorderline High Triglyceride 150-199 mg/dLHigh Triglyceride: 200-499 mg/dLVery High Triglyceride: greater than or equal to 5OO mg/dL Cholesterol 198 <200 mg/dL [facility] Comment:Desirable Cholestero l: less than 200 mg/dLBorderline High Cholesterol: 200-239 mg/dLHigh Cholesterol: greater than 239 mg/dL LDL Cholesterol Calculated 140(H) <100 mg/dL [facility] Comment:Desirable LDL: less than 100 mg/dLNear Optimal/Above Optimal LDL: 110- 129 mg/dLBorderline High LDL: 130-159 mg/dLHigh LDL: 160-189 mg/dLVery High LDL: greater than or equal to 190 mg/dL HDL Cholesterol 40(L) >40 mg/dL [facility] Comment:Desirable HDL: great er than 40 mg/dL Note: This HDL assay may give artificially low results in patients with liver disease. Blood Venous blood specimen / Unknown 05/15/2024 12:56 PM EDT 05/15/2024 2:51 PM EDT Result [facility] us Mariann Landaverde MD LAB BLOOD ORDERABLES Final Re sult [facility] [address] [place] [phone] * POCT HGB A1C (04/11/2024 11:53 AM EST) Hemoglobin A1C 6.0 4.0 - 6.0 % [employer] Lot # [id number] Lot# Expiration Date ,026 Blood 04/11/2024 11:5 3 AM EST us aMriann Landaverde MD POINT OF CARE TEST ENTER/EDIT ORDERABLES Final Result * POCT Glucose (04/11/2024 11:52 AM EST) Glucose Blood, POC 153 60 - 200 mg/dL [employer] Lot # [id number] Lot# Expiration Date 7,325 Blood Capillary blood specimen / Unknown 04/11/2024 11:52 AM EST us Mariann Landaverde MD POINT OF CARE TEST ENTER/EDIT ORDERABLES Final Result from Last [address] [facility] C3 Care Teams Reconstructive Dentist Relationship Specialty Start Date End Date Mariann Landaverde MD [address] [place] [phone] PCP - General Family Medicine 02/06/18
--- OUTSIDE RECORDS SUMMARY | 2024-06-18 23:58 | XMS_ITS | Encounter Summary ---
Author Organization [employer] Address [address] [facility] 7t [place] [address] Care Team Providers Care Surgery Specialist Name Role Phone Mariann Landaverde MD Primary Care Provider [phone] Reason for Visit * Reason Onset Date Comments Additional Information 03/14/2023 Encounter Details Date Type Department Care Team ([facility] st Contact Info) Description 03/14/2023 Telephone [facility] [address] [place], [place] [phone] Mariann Landaverde MD [address] [place], [place] [phone] Additional Information Social History Tobacco Use Types [...] 9:50 AM EST Tc from Yeny at [facility] Radiology calling to inform the PCP that the part for how many packs per year the patient smokes cigarettes needs to be filled out due to insurance documented in this encounter Plan of Treatment Upcoming Encounters Date Type Department Care Team (Late st Contact Info) Description 07/24/2024 11:30 AM EDT Office Visit [facility] [address] [place] [address] Mariann Landaverde MD [address] [place] [address] documented as of this encounter Visit Diagnoses Not on filedocumented in this encounter Additional Health Concerns Assessment Noted Time PHQ-9 Depression Total Score: 0 06/08/19 23 12:00 PM EDT documented as of this encounter Care Teams Surgery Specialist Relationship Specialty Start Date End Date Mariann Landaverde MD [address] [place] [address] PCP - General Family Medicine 02/06/18 documented as of this encounter
== END 2024-06-19 00:15 | disposition left against medical advice (07) ==
PROVIDERS: Emergency Provider Emergency Medicine
DX: K13.79 Other lesions of oral mucosa (principal); K08.89 Other specified disorders of teeth and supporting structures
CPT/HCPCS: 99281

== ENCOUNTER 2024-11-11 13:04 | Outpatient (AMB) | payer MEDICAID, SELFPAY ==
[2024-11-11 13:08] VITALS: BP 122/72; PULSE 63; BMI 25.5
--- NOTE | 2024-11-11 13:08 | A.OFFVIS_ITS ---
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 In his 54-year-old male not a good historian with prior history of hypothyroidism for which she takes levothyroxine also history of hyperlipidemia and chronic smoking. Patient says he also has poor sleep pattern and is hyperactive. He said he remains very active and has lost a significant amount of weight with dietary modification physical activity. That has led to improvement in his fatty liver. However he has last LDL still remains elevated 140 mg/dL. This year in July he said he was walking down the staircase and came into the kitchen and he suddenly felt not well and he passed out blocked out his front to he said with the episode. He said he remembers the whole episode and feeling like there was a constricting feeling in his subsequently came around with a deep breath and call [phone] which was director of sales support they came did EKGs did not decide to go to the emergency room. He went to the emergency room subsequent day very had some initial workup including MRI and other cardiac testing. However he signed himself out against medical advice. Since then he has not significant exertional chest pain or shortness of breath. He has not recurrent lightheadedness or syncopal episode. No prolonged palpitation irregular heartbeat. He said intermittently gets sharp stabbing pain which last for few sec while he is at rest. He tries to quit smoke but he is not successful. He said about many years ago about 2 decades ago he had what appears to be an angiogram as per him and was told he had a partially blocked artery although he is not very clear about it. Review of Systems Const Denies chills, Denies daytime sleepiness, Denies fatigue, Denies fever(s), Den ies frequent falls, Denies poor appetite, Denies snoring, Denies stops breathing during sleep, Denies weakness, Denies weight gain and Denies weight loss Eyes Denies loss of vision ENT Denies dizziness and Denies hearing loss Card Denies chest pain, Denies claudication, Denies leg edema, Denies lightheadedness, Denies palpitations, Denies dyspnea, Denies dyspnea on exertion and Denies orthopnea Resp Denies cough, Denies excessive phlegm production, Denies dyspnea, Denies dyspnea on exertion, Denies snoring and Denies wheezing GI Denies abdominal pain, Denies hematochezia, Denies change in bowel habits, Denies nausea and Denies vomiting Denies dysuria and Denies urinary frequency Musc Denies arthralgias, Denies muscle weakness and Denies numbness Skin/Breast Denies nail changes and Denies rash Neuro Denies Abnormal speech present, Denies dizziness, Denies frequent falls, Denies loss of vision, Denies memory loss, Denies numbness and Denies weakness Psych Denies depression and Denies memory loss Endo Denies fatigue and Denies palpitations Tony/Lymph Reports easy bruising and Reports other (anemia) Aller/Immun Denies wheezing Physical Exam Vital Signs: Last Vital Signs Pulse 63 11/11/24 13:08 BP 122/72 11/11/24 13:08 BMI result Body Mass Index 25.5 Const General: cooperative, comfortable, no acute distress, alert, awake, Physically active and anxious Nutritional Appearance: average body habitus Orientation/consciousness: patient oriented x3 Limitations: no limitations HEENT Head: Yes normocephalic and Yes atraumatic Neck Neck: Yes trachea midline, Yes supple and Yes no JVD Resp Effort & Inspection: normal respiratory effort Auscultation: clear to auscultation bilaterally Cardio Jugular venous distension: no JVD Palpation: normal PMI Rate: regular rate Rhythm: regular rhythm Heart sounds: S1 normal heart sound present, S2 normal heart sound present, no click, no gallops, no murmurs and no rubs Bruits: no carotid bruits GI Auscultation: normal bowel sounds Skin General skin exam: no rashes or lesions noted Neuro General: patient oriented x3 and no focal motor deficits Speech: No Abnormal speech present Extrem General: Yes no clubbing, cyanosis or edema Psych Appearance: grossly normal Assessment & Plan Assessment & Plan (1) Chest pain: Code(s): R07.9 - Chest pain, unspecified Category: Medical Plan: Patient with atypical symptoms with symptoms of chest tightness squeezing along with possible syncopal episode. This is unclear. Patient has multiple risk factors for coronary disease including smoking, hyperlipidemia, untreated and says that he had not gone statins ever. Today his blood pressure is normal. EKGs normal. However given his significant risk factors, I would suggest him to have workup for structural heart disease including significant coronary artery disease. Suggest exercise myocardial perfusion imaging in near future. Also suggest echocardiogram to evaluate LV structure and function. Also suggest a 2 day Holter monitor to rule out any significant cardiac arrhythmias. If these tests are within normal limits I would suggest him to further screen with coronary calcium score although utility of screening would lead to medical therapy in his absolutely against statin therapy. Advised smoking cessation. He showed understanding but not sure if he would like to quit. No other current recommendation pharmacotherapy is recommended. Will follow up in the clinic after testing. Thank you for allowing me to partake in his care Orders: Orders CA stress test Today R07.9 - Chest pain, unspecified NM cardiolite stress test 2 Weeks R07.9 - Chest pain, unspecified CA echo transthoracic complete Today R07.9 - Chest pain, unspecified ECG holter monitor 48 hour Today R07.9 - Chest pain, unspecified Coding Level of Care Code New Pt Level 4 (03182) Complex EM visit Add On G2211 Diagnoses Chest pain R07.9
--- OUTSIDE RECORDS SUMMARY | 2024-11-11 15:26 | XMS_ITS | Encounter Summary ---
Author Organization [employer] Address [address] [facility] 7t [place] [address] Care Team Providers Care Childcare Provider Name Role Phone Mariann Landaverde MD Primary Care Provider [phone] Reason for Visit * Reason Onset Date Comments Additional Information 03/14/2023 Encounter Details Date Type Department Care Team ([facility] st Contact Info) Description 03/14/2023 Telephone [facility] [address] [place], [place] [phone] Mariann Landaverde MD [address] [place], [place] [phone] Additional Information Social History Tobacco Use Types [...] 9:50 AM EST Tc from Yeny at [facility] Radiology calling to inform the PCP that the part for how many packs per year the patient smokes cigarettes needs to be filled out due to insurance documented in this encounter Plan of Treatment Not on file documented as of this encounter Visit Diagnoses Not on filedocumented in this encounter Additional Health Concerns Assessment Noted Time PHQ-9 Depression Total Score: 0 06/08/19 23 12:00 PM EDT documented as of this encounter Care Teams Childcare Provider Relationship Specialty Start Date End Date Mariann Landaverde MD [address] [place] [phone] PCP - General Family Medicine 02/06/18 documented as of this encounter
--- OUTSIDE RECORDS SUMMARY | 2024-11-11 15:26 | XMS_ITS | Encounter Summary ---
Author Organization [employer] Address [address] [facility] [address]t [place] [address] Care Team Providers Care Reel Slitter Name Role Phone Mariann Landaverde MD Primary Care Provider [phone] Reason for Referral * Imaging (Routine) - Closed Specialty Diagnoses / Procedures Referred By Contmaty t Referred To Contact Diagnoses Smoker Procedures CT Chest w/ Contrast Kourtney Cherry MD [address] [place] [phone] Phone: tel: fax: [address] Phone: tel: fax: Referral ID Status Reason Start Date Expiration Date Visits Re quested Visits Authorized [id number] Closed 06/24/2022 06/24/2023 1 1 Encounter Details Date Type Department Care Team ([facility] st Contact Info) Description 06/24/2022 Orders Only [facility] [address] [place], [place] [phone] Kourtney Cherry MD [address] [place], [place] [phone] Smoker (Primary Dx) Social History Tobacco Use [...] as of this encounter Plan of Treatment Scheduled Orders Name Type Priority Associated Diagnoses Orde r Schedule CT Chest w/ Contrast Imaging Routine Smoker Expected: 06/24/2022, Expires: 06/25/2023 documented as of this encounter Procedures Procedure Name Priority Date/Time Associated Diagnosis Comments T4, FREE Routine 03/09/2023 4:07 PM EST Smoker documented in this encounter Results * T4, Free (03/09/2023 4:07 PM EST) Free T4 (Free Thyroxine) 1.19 0.71 - 1.85 ng/dL [facility] 03/09/2023 4:07 PM EST 03/09/2023 5:31 PM EST us Mariann Landaverde MD LAB BLOOD ORDERABLES Final Re sult [facility] [address] [place] [phone] [phone] documented in this encounter Visit Diagnoses Diagnosis Smoker- Primary Tobacco use disorder documented in this encounter Additional Health Concerns Assessment Noted Time PHQ-9 Depression Total Score: 0 06/08/19 23 12:00 PM EDT documented as of this encounter Care Teams Reel Slitter Relationship Specialty Start Date End Date Mariann Landaverde MD [address] [place] [phone] PCP - General Family Medicine 02/06/18 documented as of this encounter
--- OUTSIDE RECORDS SUMMARY | 2024-11-11 15:27 | XMS_ITS | Encounter Summary ---
Author Organization [employer] Address [address] [facility] [address] [place] [address] Care Team Providers Care Settlement Clerk Name Role Phone Mariann Landaverde MD Primary Care Provider [phone] Encounter Details Date Type Department Care Team (Late st Contact Info) Description 03/14/2023 Orders Only [facility] [address] [place], [place] [phone] Mariann Landaverde MD [address] [place], [place] [phone] Social History Tobacco Use Types Packs/Day Years [...] as of this encounter Plan of Treatment Not on file documented as of this encounter Procedures Procedure Name Priority Date/Time Associated Diagnosis Comments T4, FREE Routine 08/08/2023 11:45 AM EDT documented in this encounter Results * T4, Free (08/08/2023 11:45 AM EDT) Free T4 (Free Thyroxine) 0.98 0.71 - 1.85 ng/dL [facility] 08/08/2023 11:4 5 AM EDT 08/08/2023 2:20 PM EDT us Mariann Landaverde MD LAB BLOOD ORDERABLES Final Re sult [facility] [address] [place] [address] [phone] documented in this encounter Visit Diagnoses Not on filedocumented in this encounter Additional Health Concerns Assessment Noted Time PHQ-9 Depression Total Score: 0 06/08/19 23 12:00 PM EDT documented as of this encounter Care Teams Settlement Clerk Relationship Specialty Start Date End Date Mariann Landaverde MD [address] [place] [phone] PCP - General Family Medicine 02/06/18 documented as of this encounter
--- OUTSIDE RECORDS SUMMARY | 2024-11-11 15:27 | XMS_ITS | Clinical Summary ---
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 Role Phone Mariann Landaverde MD Primary Care Provider [phone] Allergies Active Allergy Reactions Criticality Noted Date Comments Oxycodone 04/21/2014 Other reaction(s): Nausea/Vomiting Medications albuterol (ProAir HFA) 108 (90 Base) MCG/ACT inhaler inhale 2 puff by inhalation route every 4 - 6 hours as needed as needed for wheezing 09/12/19 19 Active atorvastatin (Lipitor) 40 MG tablet take 1 tablet by oral route every bedtime 04/20/19 22 Active dulaglutide (Trulicity) 0.75 MG/0.5ML solution pen-injector inject (0.75MG) by subcutaneous route every week 11/10/19 22 Active fluticasone (Flovent HFA) 220 MCG/ACT inhaler inhale 1 puff (220MCG) by inhalation route 2 times every day 08/27/19 21 Active glucose blood (FREESTYLE LITE) test strip check bs by skin route 2 times every day 01/02/20 19 Active ibuprofen 600 MG tablet take 1 tablet by oral route 3 times every day with food 02/13/19 18 Active sildenafil (Viagra) 100 MG tablet take 1 tablet by oral route every day as needed approximately 1 hour before sexual activity as needed 02/04/20 21 Active testosterone (Testim) 50 MG/5GM (1%) gel apply (50MG) by topical route every day (1 tube = 50 mg) 04/09/19 22 Active Varenicline Tartrate, Starter, (Chantix Starting Month ) 0.5 MG X 11 & 1 MG X 42 tablet therapy pack Take 0.5 mg by mouth 2 times daily. 53 each 06/08/19 23 Active nicotine (Nicoderm, Step 1) 21 MG/24HR patch apply 1 patch by transdermal route every day and remove at bedtime 30 patch 1 03/09/19 24 Active Viagra 100 MG tabletIndication s:Erectile dysfunction due to diseases classified elsewhere TAKE 1 TABLET 1 HOUR BEFORE SEXUAL RELATIONS ONCE DAILY NEEDED. 4 tablet 3 08/18/19 24 Active enalapril (Vasotec) 20 MG tablet TAKE ONE TABLET EVERY DAY 90 tablet 3 11/27/19 24 Active Trulicity 0.75 MG/0.5ML solution auto-injectorInd ications:Type 2 diabetes mellitus without complication, without long-term current use of insulin (HCC) INJECT ONE PEN (=0.75MG) SUBCUTANEOUSLY ONCE A WEEK DIRECTED 2 mL 11 05/07/19 25 Active hydroCHLOROthiaz jose (HYDRODiuril) 25 MG tabletIndication s:Benign essential hypertension TAKE ONE TABLET EVERY DAY 30 tablet 11 06/05/19 25 Active nicotine (Nicoderm, Step 1) 21 MG/24HR patchIndications :Nicotine Dependence Place 1 patch on the skin 1 (one) time each day at the same time. 30 patch 2 07/25/19 25 Active levothyroxine (Synthroid, Levoxyl) 125 MCG tablet TAKE ONE TABLET DAILY BEFORE BREAKFAST 90 tablet 3 10/11/19 25 Active Active Problems Problem Noted Date Diagnosed Date Cigarette smoker 08/08/2023 Diabetes mellitus without complication 7 Benign essential hypertension 01/28/2015 Acquired hypothyroidism 06/14/2011 Hypercholesterolemia 06/14/2011 Tobacco dependence in remission 06/14/2011 03/13/2023 Hypertension 06/14/2011 03/13/2023 Obesity 06/14/2011 03/13/2023 Encounters Date Type Department Care Team Description 10/10/2024 Refill [facility] [address] [place], [place] [phone] Mariann Landaverde MD 08/30/2024 Telephone [facility] [address] [place] [address] Mariann Landaverde MD cologuard outreach from Last 3 Months Immunizations Immunization Administration [...] Sign Reading Time Taken Comments Blood Pressure 150/94 07/24/2024 11:46 AM EDT Pulse 68 07/24/2024 11:33 AM EDT Temperature 36.4 C (97.6 F) 07/24/2024 11:33 AM EDT Respiratory Rate 20 07/24/2024 11:33 AM EDT Oxygen Saturation 98% 04/11/2024 11:48 AM EST Inhaled Oxygen Concentration - - Weight 83.5 kg (184 lb) 07/24/2024 11:33 AM EDT Height 174 cm (5' 8.5 ) 04/11/2024 11:48 AM EST Body Mass Index 27.57 04/11/2024 11:48 AM EST Plan of Treatment Health Maintenance Due Date Last Done Comments CT Colonography 1968 Colonoscopy 1968 Colorectal Cancer Screening 1968 FIT DNA/Cologuard 1968 FIT 1968 FOBT 1968 HIV Screening 1968 Sigmoidoscopy 1968 Disability Screening 1968 Diabetes: Foot Exam 01/19/1978 Alcohol/Substance Use Screening 1980 Hepatitis C Screening 01/19/1986 Hepatitis B Vaccines (1 of 3 - 19+ 3-dose series) 01/19/1987 Pneumococcal Vaccine: 50+ Years (1 of 2 - PCV) 01/19/1987 Zoster Vaccines (1 of 2) 01/19/2018 DTaP/Tdap/Td Vaccines (2 - Td or Tdap) 09/10/2019 09/09/2009 Depression Screening 06/08/2023 06/07/2022, 06/08/19 23 SDOH Screening 08/07/2024 08/08/2023 Eye Exam 09/06/2024 09/06/2022, 02/2022, 09/06/2022, Additional history exists COVID-19 Vaccine ( season) 2024 04/18/2020, 03/26/2020 Influenza Vaccine (#1) 2024 Diabetes: Hemoglobin A1C 10/12/20242 025, 08/08/2023, 03/09/2023, Additional history exists Diabetes: Urine Protein Screening 05/15/2025 05/15/2024, 05/04/2021, 08/26/2020, Additional history exists Lipid Panel 05/15/2025 05/15/2024, 02/2023, 03/02/2022, Additional history exists Tobacco Screening 07/24/2025 07/24/2024, 06/07/2022 RSV Patients and Patients Aged 60 [...] patient's age to complete this topic Meningococcal B Vaccine Aged Out No l onger eligible based on patient's age to complete [...] without complication (CMS/HCC) from Last 3 Months or Most Recently Relevant to Health Maintenance Results * Albumin, Random Urine W/Creatinine (05/15/2024 12:59 PM EDT) Creatinine, Urine 223.91 mg/dL [facility] Microalbumin Urine 25.0 mg/L [facility] Microalbum Creatinine Ratio Ur 11.1 <30 ug/mg cr [facility] Comment:Albumin/Creatinine R atio Reference Ranges: Normal: < 30 ug/mg creatinine Microalbuminuria: 30 - 300 ug/mg creatinineClinical Albuminuria: > 300 ug/mg creatinine Urine (Urine, Random) 05/15/2024 12:59 PM EDT 05/15/2024 2:54 PM EDT us Mariann Landaverde MD LAB URINE ORDERABLES Final Re sult Performing Organization Address [facility]/ZIP Co de Phone Number [facility] [address] [place] [address] [phone] * (ABNORMAL) Lipid Panel, Standard (05/15/2024 12:56 PM EDT) Triglycerides 93 <150 mg/dL [facility] Comment:Desirable Triglyceri de: less than 150 mg/dLBorderline High Triglyceride 150-199 mg/dLHigh Triglyceride: 200-499 mg/dLVery High Triglyceride: greater than or equal to 5OO mg/dL Cholesterol 198 <200 mg/dL [facility] Comment:Desirable Cholestero l: less than 200 mg/dLBorderline High Cholesterol: 200-239 mg/dLHigh Cholesterol: greater than 239 mg/dL LDL Cholesterol Calculated 140(H) <100 mg/dL [facility] Comment:Desirable LDL: less than 100 mg/dLNear Optimal/Above Optimal LDL: 110- 129 mg/dLBorderline High LDL: 130-159 mg/dLHigh LDL: 160-189 mg/dLVery High LDL: greater than or equal to 190 mg/dL HDL Cholesterol 40(L) >40 mg/dL [facility] Comment:Desirable HDL: great er than 40 mg/dL Note: This HDL assay may give artificially low results in patients with liver disease. Blood Venous blood specimen / Unknown 05/15/2024 12:56 PM EDT 05/15/2024 2:51 PM EDT Mariann Landaverde MD LAB BLOOD ORDERABLES Final Re sult Performing Organization Address City/[facility]/ZIP Co de Phone Number [facility] [address] [place] [address] [phone] * POCT HGB A1C (04/11/2024 11:53 AM EST) Hemoglobin A1C 6.0 4.0 - 6.0 % QC Media Lot # [id number] Lot# Expiration Date [id number] Blood 04/11/2024 11:5 3 AM EST Mariann Landaverde MD POINT OF CARE TEST ENTER/EDIT ORDERABLES Final Result from Last 3 Months or Most Recently Relevant to Health Maintenance Insurance [facility] C[facility] * Guarantor: Marcos Otero Account Type Relation to Patient Date of Phone Billing Address Personal/Family Self [address] [facility] 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
== END 2024-11-11 13:50 | disposition home or self-care (01) ==
LOC: HO.HCS 13:04
PROVIDERS: PCP Pediatrics; Referring Provider Pediatrics; Visit Provider Internal Medicine Cardiovascular Disease
DX: R07.9 Chest pain, unspecified (principal)
CPT/HCPCS: 93010; 99204

== ENCOUNTER → 2024-11-11 13:04 | Outpatient (BNVA) | payer MEDICAID, SELFPAY | PROVIDERS: PCP Pediatrics; Visit Provider Internal Medicine Cardiovascular Disease | DX: R07.9 Chest pain, unspecified (principal) | CPT/HCPCS: 93005; 99202 ==